=== PATIENT | female | born 1960 | race Caucasian/White ===

== ENCOUNTER 2016-11-18 13:15 | Emergency (ER) | payer OTHER ==
[~2016-11-18] VITALS: Ht 177.8 cm; Wt 70.0 kg
[~2016-11-18 13:15] MED LIST: ANTABUSE250 MG PO; ASPIR-LOW81 MG PO; BACLOFEN10 MG PO; BUPROBAN150 MG PO; CIPROFLOXACIN500 M1 PO; CONCERTA36 MG PO; CONCERTA54 MG PO; DISULFIRAM250 MG PO; DOLOPHINE HCL10 MG PO; FOLIC ACID1 MG PO; GABAPENTIN300 MG PO; GABAPENTIN400 MG PO; HYDROCHLOROTHIA25 MG PO; LAMICTAL100 MG PO; LAMICTAL25 MG PO; LAMOTRIGINE100 MG PO; LEVOTHYROXINE100 MCG PO; LEVOTHYROXINE112 MCG PO; METHADONE HCL40 MG PO; METHADONE10 MG PO; MICROZIDE12.5 M1 PO; MIRALAX17 GM PO; NEURONTIN800 MG PO; POTASSIUM CHLO20 ME1 PO; PROZAC20 MG PO; PROZAC40 MG PO; SIMVASTATIN20 MG PO; THERAGRAN1 TABLET PO; TRAZODONE HCL100 MG PO; VITAMIN B-1100 MG PO; WELLBUTRIN SR150 MG PO; ZOCOR20 MG PO
[2016-11-18 14:32] LABS: HEMATOCRIT 26.6 % (36.0-46.0); MCH 28.2 PG (29.0-34.0); MCHC 32.3 G/DL (30.0-36.0); MCV 87.2 FL (83-99); MEAN PLAT.VOLUME 8.6 uM^3 (9.5-12.4); RBC DIS.WIDTH-CV 12.6 % (11.8-14.6); RED BLOOD COUNT 3.05 M/uL (3.80-5.20)
[2016-11-18 14:36] LABS: PLATELET COUNT 269 K/uL (156-360); WHITE BLOOD COUNT 7.5 K/uL (4.1-10.2)
[2016-11-18 14:42] LABS: CHLORIDE 100 mEq/L (99-109); POTASSIUM 3.8 mEq/L (3.7-5.4); SODIUM 139 mEq/L (136-147)
[2016-11-18 14:44] LABS: GLUCOSE 119 mg/dL (70-99)
[2016-11-18 14:45] LABS: ANION GAP 8 MEQ/L (2-14)
[2016-11-18 14:48] LABS: GFR ESTIMATE (CALCULATED) > 59 mL/min/
[2016-11-18 14:49] LABS: UREA NITROGEN (BUN) 16 mg/dL (9-23)
[2016-11-18 15:13] VITALS: BP 117/69
== END 2016-11-18 15:25 | disposition short-term general hospital (02) ==
LOC: EME 13:15
PROVIDERS: Emergency Medicine
DX: G89.18 Other acute postprocedural pain (principal); M54.9 Dorsalgia, unspecified; R42 Dizziness and giddiness; R53.1 Weakness; R26.2 Difficulty in walking, not elsewhere classified; Z91.81 History of falling; Z98.890 Other specified postprocedural states; I10 Essential (primary) hypertension; Z87.891 Personal history of nicotine dependence
CPT/HCPCS: 80048; 85027; 99281; 99284; J2270

== ENCOUNTER 2016-12-18 16:02 | Emergency (ER) | payer OTHER ==
[~2016-12-18] VITALS: Ht 172.7 cm; Wt 69.7 kg
[2016-12-18 16:56] LABS: HEMATOCRIT 30.3 % (36.0-46.0); MCH 26.3 PG (29.0-34.0); MCHC 31.4 G/DL (30.0-36.0); MCV 83.9 FL (83-99); MEAN PLAT.VOLUME 9.2 uM^3 (9.5-12.4); PLATELET COUNT 232 K/uL (156-360); RBC DIS.WIDTH-CV 12.2 % (11.8-14.6); RBC DIS.WIDTH-SD 37.2 % (39-53); RED BLOOD COUNT 3.61 M/uL (3.80-5.20); WHITE BLOOD COUNT 7.2 K/uL (4.1-10.2)
[2016-12-18 17:09] LABS: CHLORIDE 102 mEq/L (99-109); POTASSIUM 4.5 mEq/L (3.7-5.4); SODIUM 140 mEq/L (136-147)
[2016-12-18 17:11] LABS: GLUCOSE 97 mg/dL (70-99)
[2016-12-18 17:12] LABS: ANION GAP 9 MEQ/L (2-14)
[2016-12-18 17:15] LABS: GFR ESTIMATE (CALCULATED) 49 mL/min/
[2016-12-18 17:16] LABS: UREA NITROGEN (BUN) 13 mg/dL (9-23)
[2016-12-18 17:17] LABS: TROP-I INTERPRETATION NEGATIVE; TROPONIN-I < 0.01 ng/mL (0.0-0.30)
[2016-12-18] MEDS ORDERED: OXYCODONE HCL15 MG PO (17:37)
[2016-12-18] MEDS ORDERED: MORPHINE SULFAT30 M2 PO (17:38)
[2016-12-18] MEDS ORDERED: DOXYCYCLINE HY100 MG PO (21:24)
[2016-12-18 21:50] VITALS: BP 139/74
== END 2016-12-18 22:54 | disposition home or self-care (01) ==
LOC: EME 16:02
DX: R07.9 Chest pain, unspecified (principal); I10 Essential (primary) hypertension; Z87.891 Personal history of nicotine dependence; Z98.890 Other specified postprocedural states; Z88.0 Allergy status to penicillin; F32.9 Major depressive disorder, single episode, unspecified
CPT/HCPCS: 71020; 71275; 80048; 84484; 85027; 93005; 99281; 99285